=== PATIENT | female | born 1980 | race Caucasian/White ===

== ENCOUNTER 2022-10-27 17:55 | Emergency (ER) | payer MEDICAID ==
[~2022-10-27] VITALS: Ht 162.6 cm; Wt 61.0 kg
[2022-10-27 18:17] VITALS: BP 139/100
== END 2022-10-27 22:38 | disposition left against medical advice (07) ==
LOC: ER 17:55
DX: Z53.21 Procedure and treatment not carried out due to patient leaving prior to being seen by health care provider (principal)

== ENCOUNTER 2023-03-11 02:08 | Emergency (ER) | payer MEDICAID, OTHER ==
[~2023-03-11] VITALS: Ht 160 cm; Wt 64.3 kg
[2023-03-11 02:16] VITALS: TEMP 99; O2SAT 100
[2023-03-11] MEDS ORDERED: IBUPROFEN 600MG TABLET PO NR (03:24)
[2023-03-11 03:48] VITALS: BP 189/111; PULSE 99; RESP 18
[2023-03-11] MEDS ORDERED: NAPR-681 PO (04:25)
== END 2023-03-11 05:45 | disposition home or self-care (01) ==
LOC: ER 03:58
DX: S60.221A Contusion of right hand, initial encounter (principal); W01.0XXA Fall on same level from slipping, tripping and stumbling without subsequent striking against object, initial encounter; Y93.89 Activity, other specified; Y92.89 Other specified places as the place of occurrence of the external cause; Y99.8 Other external cause status; Z98.890 Other specified postprocedural states
CPT/HCPCS: 73110; 73130; 99284

== ENCOUNTER 2023-04-26 22:02 | Emergency (ER) | payer OTHER ==
[~2023-04-26] VITALS: Ht 162.6 cm; Wt 60.0 kg
[~2023-04-26 22:02] MED LIST: NAPR-681 PO
[2023-04-26 22:27] VITALS: TEMP 99.6; O2SAT 97
[2023-04-26] MEDS ORDERED: VANCOMYCIN 1GM PMX (XELLIA) 200 ML IV SCH (22:45)
[2023-04-26 22:55] LABS: BASOPHILS % 0.4 % (0.0-2.0); EOSINOPHILS % 0.4 % (0.0-5.0); HEMATOCRIT. 27.8 % (36.0-48.0); HEMOGLOBIN. 8.1 g/dL (12.0-16.0); LYMPHOCYTES % 7.3 % (20.0-50.0); MEAN CORPUSCULAR HEMOGLOBIN 19.2 pg (28.0-32.0); MEAN CORPUSCULAR HGB CONC 29.3 g/dL (31.0-37.0); MEAN CORPUSCULAR VOLUME 65.7 fL (81.0-99.0); MEAN PLATELET VOLUME 7.1 fl (7.4-10.4); MONOCYTES % 9.7 % (2.0-8.0); NEUTROPHILS % 82.2 % (40.0-76.0); PLATELET 425 x1000/uL (130-400); RED BLOOD CELL COUNT 4.23 mill/uL (4.2-5.4); RED CELL DISTRIBUTION WIDTH 18.7 % (11.6-14.6); WHITE BLOOD COUNT 14.2 x1000/uL (4.5-11.0)
[2023-04-26 22:56] LABS: ADD RBC MORPHOLOGY YES; DIFFERENTIAL COMMENT 1
[2023-04-26 23:01] LABS: CHLORIDE 105 mEq/L (98-107); INDEX HEMOLYSI 1 (1-3); INDEX ICTERIC 1 (1-4); INDEX LIPEMIC 1 (1-3); POTASSIUM 3.6 mEq/L (3.5-5.1); SODIUM 134 mEq/L (136-145)
[2023-04-26 23:03] LABS: ALBUMIN 3.5 g/dL (3.4-5.0); CALCIUM 8.7 mg/dL (8.5-10.1); CARBON DIOXIDE 21 mEq/L (21-32); GLUCOSE 111 mg/dL (70-105); UREA NITROGEN BLOOD 9 mg/dL (7-21)
[2023-04-26 23:07] LABS: ALANINE AMINOTRANSFERASE 18 IU/L (13-61); ASPARTATE AMINOTRANSFERASE 13 IU/L (15-37); BILIRUBIN TOTAL 1.1 mg/dL (0.1-1.0); CREATININE 0.8 mg/dL (0.6-1.3); PROTEIN TOTAL 7.6 g/dL (6.0-8.3)
[2023-04-26 23:13] LABS: HCG SCREEN NEGATIVE
[2023-04-26] MEDS ORDERED: KETOROLAC 30MG/ML VIAL IV ONE (23:15)
[2023-04-26] MEDS ORDERED: VANCOMYCIN 1G PREMIX 200 ML IV NR (23:15)
[2023-04-26 23:31] VITALS: BP 140/92; PULSE 88; RESP 15
[2023-04-26 23:47] LABS: PLATELET ESTIMATE INCREASED
[2023-04-26 23:48] LABS: ANISOCYTOSIS 1+; HYPOCHROMASIA 2+; MICROCYTOSIS 3+; OVALOCYTES 1+
== END 2023-04-27 02:10 | disposition admitted as inpatient to this hospital (09) ==
LOC: ER 22:16 → CANBEDREQ 04-27 02:14
DX: L03.116 Cellulitis of left lower limb (principal); Z98.890 Other specified postprocedural states; Z20.822 Contact with and (suspected) exposure to COVID-19
CPT/HCPCS: 99284; 96365; 96375; 80053; 84703; 85025; 87040; 36415; 93005; 87426; J1885; J3370; C9803

== ENCOUNTER 2023-08-16 23:14 | Emergency (ER) | payer OTHER ==
[~2023-08-16] VITALS: Ht 165.1 cm; Wt 62.5 kg
[2023-08-16 23:27] VITALS: BP 165/106; O2SAT 100
[2023-08-16] MEDS ORDERED: LIDOCAINE HCL/PF 1% 10 MG/ML 5ML VIAL INFIL ONE (23:45)
[2023-08-16] MEDS ORDERED: BACITRACIN ZINC OINT UDPKT TOP ONE (23:45)
[2023-08-16] MEDS ORDERED: TETANUS, DIPHTHERIA, PERTUSSIS VAC/PF 0.5ML (>10YR OLD) IM ONE (23:45)
[2023-08-17] MEDS ORDERED: BO1 TP (01:27)
[2023-08-17 02:08] VITALS: PULSE 75; RESP 20; TEMP 98.2
== END 2023-08-17 02:15 | disposition home or self-care (01) ==
LOC: ER 23:14
DX: S01.511A Laceration without foreign body of lip, initial encounter (principal); Z98.890 Other specified postprocedural states; Y08.89XA Assault by other specified means, initial encounter; Y93.89 Activity, other specified; Y92.89 Other specified places as the place of occurrence of the external cause; Y99.8 Other external cause status
CPT/HCPCS: 81025; 90715; 99283; 90471; J3490; Z7610 ×2

== ENCOUNTER 2024-08-05 20:51 | Emergency (ER) | payer OTHER ==
[~2024-08-05] VITALS: Ht 160 cm; Wt 61.0 kg
[~2024-08-05 20:51] MED LIST changes: +BO1 TP
[2024-08-05 21:04] VITALS: TEMP 97.9; O2SAT 100
[2024-08-05 22:09] LABS: BASOPHILS % 0.7 % (0.0-2.0); DIFFERENTIAL COMMENT 0; EOSINOPHILS % 1.5 % (0.0-5.0); HEMATOCRIT. 31.5 % (36.0-48.0); HEMOGLOBIN. 9.8 g/dL (12.0-16.0); LYMPHOCYTES % 11.2 % (20.0-50.0); MEAN CORPUSCULAR HEMOGLOBIN 21.8 pg (28.0-32.0); MEAN CORPUSCULAR VOLUME 70.3 fL (81.0-99.0); MEAN PLATELET VOLUME 7.3 fl (7.4-10.4); MONOCYTES % 6.9 % (2.0-8.0); NEUTROPHILS % 79.7 % (40.0-76.0); PLATELET 468 x1000/uL (130-400); RED BLOOD CELL COUNT 4.49 mill/uL (4.2-5.4); RED CELL DISTRIBUTION WIDTH 18.1 % (11.6-14.6); WHITE BLOOD COUNT 10.6 x1000/uL (4.5-11.0)
[2024-08-05 22:21] LABS: CARBON DIOXIDE 28 mEq/L (21-32); CHLORIDE 106 mEq/L (98-107); POTASSIUM 4.1 mEq/L (3.5-5.1); SODIUM 139 mEq/L (136-145)
[2024-08-05 22:22] LABS: CALCIUM 9.5 mg/dL (8.7-10.4)
[2024-08-05 22:27] LABS: CREATININE 0.9 mg/dL (0.6-1.0); GLUCOSE 111 mg/dL (70-105); UREA NITROGEN BLOOD 14 mg/dL (9-23)
[2024-08-05 22:28] LABS: ALANINE AMINOTRANSFERASE 10 IU/L (10-49); HCG SCREEN NEGATIVE
[2024-08-05 22:29] LABS: ALBUMIN 4.3 g/dL (3.2-4.8); ASPARTATE AMINOTRANSFERASE 17 IU/L (<34); BILIRUBIN DIRECT 0.3 mg/dL (<=3.0); BILIRUBIN TOTAL 1.1 mg/dL (0.1-1.0); PROTEIN TOTAL 7.3 g/dL (6.0-8.3)
[2024-08-05 22:37] LABS: PROTHROMBIN TIME 10.7 sec (9.6-11.0)
[2024-08-05] MEDS: SODIUM CHLORIDE 0.9% 1,000 ML IV ONE (22:45)
[2024-08-05] MEDS: METOCLOPRAMIDE HCL 10MG/2ML VIAL IV ONE (23:00)
[2024-08-05] MEDS: KETOROLAC 30MG/ML VIAL IV STA (23:03)
[2024-08-06 01:21] VITALS: BP 129/75; PULSE 70; RESP 18; O2SAT 100
== END 2024-08-06 01:29 | disposition home or self-care (01) ==
LOC: ER 20:51
DX: D64.9 Anemia, unspecified (principal); R51.9 Headache, unspecified; R53.83 Other fatigue; R53.1 Weakness; Z90.49 Acquired absence of other specified parts of digestive tract; Z88.5 Allergy status to narcotic agent; Z98.890 Other specified postprocedural states
CPT/HCPCS: 80076; 80048; 84703; 85025; 85610; 86850; 86900; 86901; 36415; 70450; 96361; 96374; 96375; 99285; J1885; J2765; J7030; Z7610 ×2